=== PATIENT | male | born 1980 | race African-American/Black ===

== ENCOUNTER 2020-01-28 14:49 | Emergency (ER) | payer MEDICAID ==
[~2020-01-28] VITALS: Ht 172.7 cm; Wt 70.0 kg
[2020-01-28 14:58] VITALS: BP 130/75
[2020-01-28] MEDS ORDERED: SODIUM CHLORIDE 0.9% 1,000 ML IV ONE (16:00)
[2020-01-28 18:15] LABS: BG BASE EXCESS 0.6 mmol/L (-2.0-2.0); BG CARBOXYHEMOGLOBIN 4.7 % (0.5-1.5); BG DEOXYHEMOGLOBIN 3.6 % (0.0-5.0); BG FRACTION INSPIRED OXYGEN 21; BG HCO3 ACT 25.9 mmol/L (22.0-26.0); BG OXYGEN SATURATION 96.2 % (92.0-98.5); BG OXYHEMOGLOBIN 91.7 % (94.0-97.0); BG PCO2 43.9 mmHg (35.0-45.0); BG PH 7.388 (7.350-7.450); BG PO2 81.5 mmHg (75.0-100.0); BG SAMPLE SITE LEFT BRACHIAL; BG TOTAL HEMOGLOBIN 13.5 g/dL (12.0-18.0); BG VENT MODE ROOM AIR
== END 2020-01-28 19:02 | disposition left against medical advice (07) ==
LOC: ER 14:49
DX: R53.83 Other fatigue (principal); R41.0 Disorientation, unspecified; E11.9 Type 2 diabetes mellitus without complications; Z91.14 Patient's other noncompliance with medication regimen
CPT/HCPCS: 36600; 82375; 82805; 93005; 99284; J7030